=== PATIENT | male | born 1970 | race Two or more races ===

== ENCOUNTER 2019-08-27 09:09 | Outpatient (CLI) | payer OTHER | END 2019-08-27 09:18 | disposition home or self-care (01) | LOC: LAB 09:09 | DX: E66.3 Overweight (principal); F39 Unspecified mood [affective] disorder; R53.1 Weakness ==

== ENCOUNTER → 2019-08-27 | Outpatient (CLI) | payer OTHER | END | disposition home or self-care (01) | LOC: LAB SALUS | DX: Z13.220 Encounter for screening for lipoid disorders (principal); Z13.1 Encounter for screening for diabetes mellitus; Z11.4 Encounter for screening for human immunodeficiency virus [HIV]; Z72.51 High risk heterosexual behavior; Z11.3 Encounter for screening for infections with a predominantly sexual mode of transmission; Z12.11 Encounter for screening for malignant neoplasm of colon ==

== ENCOUNTER → 2019-08-31 | Outpatient (CLI) | payer OTHER | END | disposition home or self-care (01) | LOC: MAMO-SONO 07:15 → SONOGRAMA 07:37 | DX: R10.30 Lower abdominal pain, unspecified (principal) ==